=== PATIENT | female | born 1970 | race Two or more races ===

== ENCOUNTER 2018-02-28 15:06 | Emergency (ER) | payer OTHER ==
[~2018-02-28] VITALS: Ht 170.2 cm; Wt 95.3 kg
[2018-02-28 15:11] VITALS: BP 136/77
[2018-02-28] MEDS ORDERED: KETOROLAC TROMETH 60MG/2ML VIAL IM ONE (16:30)
== END 2018-02-28 16:56 | disposition home or self-care (01) ==
LOC: ER 15:09
DX: S80.01XA Contusion of right knee, initial encounter (principal); W18.09XA Striking against other object with subsequent fall, initial encounter; Y93.89 Activity, other specified; Y92.69 Other specified industrial and construction area as the place of occurrence of the external cause; Y99.8 Other external cause status
CPT/HCPCS: 73564; 96372; 99283; J1885